=== PATIENT | female | born 1985 | race Caucasian/White ===

== ENCOUNTER 2017-07-03 12:50 | Inpatient (IN) | payer MEDICAID, OTHER ==
[~2017-07-03] VITALS: Ht 165.1 cm; Wt 97.5 kg
[2017-07-03 13:36] LABS: BASOPHILS % (AUTO) 0.5 % (0.0-2.0); EOSINOPHILS % (AUTO) 2.3 % (1.0-6.0); HEMATOCRIT 39.2 % (36-46); HEMOGLOBIN 13.3 g/dL (12.0-16.0); LYMPHOCYTES # (AUTO) 2.8 K/uL (1.0-4.8); LYMPHOCYTES % (AUTO) 29.9 % (22.0-44.0); MEAN CORPUSCULAR HEMOGLOBIN 26.8 pg (26.0-34.0); MEAN CORPUSCULAR HGB CONC 33.9 G/dL (31.0-37.0); MEAN CORPUSCULAR VOLUME 79 fL (80-100); MONOCYTES # (AUTO) 0.8 K/uL (0.1-1.0); MONOCYTES % (AUTO) 8.5 % (2.0-9.0); NEUTROPHILS # (AUTO) 5.5 K/uL (1.8-7.7); NEUTROPHILS % (AUTO) 58.8 % (40.0-70.0); PLATELET COUNT (AUTO) 325 K/uL (150-450); RED BLOOD CELL COUNT(AUTO) 4.95 MIL/uL (4.00-5.20); RED CELL DISTRIBUTION WIDTH 14.5 % (11.5-14.5); WHITE BLOOD COUNT (AUTO) 9.4 K/uL (4.5-11.0)
[2017-07-03 13:44] LABS: ANION GAP 9 mmol/L (8-16); CALCIUM, TOTAL 8.9 mg/dL (8.8-10.5); CARBON DIOXIDE 26 mmol/L (22-29); CHLORIDE 104 mmol/L (98-107); CREATININE 0.74 mg/dL (0.60-1.30); GLOMERULAR FILTR. RATE CALC > 60 mL/min (>60); POTASSIUM 3.5 mmol/L (3.5-5.1); SODIUM SERUM 139 mmol/L (136-145); UREA NITROGEN, BLOOD 11 mg/dL (7-18)
[2017-07-03 13:51] LABS: ALANINE AMINOTRANSFERASE 29 U/L (12-78); ASPARTATE AMINOTRANSFERASE 19 U/L (15-37); BILIRUBIN,TOTAL 0.9 mg/dL (0.1-1.0); TOTAL PROTEIN, SERUM 7.7 g/dL (6.4-8.2)
[2017-07-03] MEDS ORDERED: IBUPROFEN 600 MG TABLET PO ONE (14:15)
[2017-07-03] MEDS ORDERED: LORazepam 2 MG TABLET PO ONE (21:00)
[2017-07-04 08:15] VITALS: BP 146/93
[2017-07-04 08:30] VITALS: BP 137/87
[2017-07-04] MEDS ORDERED: FLUoxetine HCL 20 MG CAPSULE PO SCH (10:30)
[2017-07-04] MEDS: HALOPERIDOL 5 MG TABLET PO SCH (11:29)
[2017-07-04] MEDS ORDERED: ACETAMINOPHEN 325 MG TABLET PO PRN (12:45)
[2017-07-05 05:15] LABS: APPEARANCE,URINE CLOUDY (CLEAR); GLUCOSE, URINE (UA) NEGATIVE (NEGATIVE); KETONES,URINE NEGATIVE (NEGATIVE); LEUKOCYTE ESTERASE ,URINE NEGATIVE (NEGATIVE); OCCULT BLOOD,URINE LARGE (NEGATIVE); PH,URINE 6.5 (5.0-8.0); PROTEIN,URINE POS 1+ (NEGATIVE)
[2017-07-05 05:16] LABS: ADD UA MICROSCOPIC YES
[2017-07-05 06:04] LABS: RBC,URINE 26-50 /HPF (0-2); SQUAMOUS EPITHELIAL CELL,UR Few /LPF (None Seen)
[2017-07-05 07:08] LABS: THYROID STIMULATING HORMONE 0.27 uIU/mL (0.36-3.74)
[2017-07-05 08:42] VITALS: BP 146/96
[2017-07-05] MEDS: HALOPERIDOL 5 MG TABLET PO SCH (09:14)
[2017-07-05] MEDS: PRENATAL VIT#96/FERROUS FUM/FA TABLET PO SCH (09:14)
[2017-07-05] MEDS ORDERED: IBUPROFEN 800 MG TABLET PO PRN (15:15)
[2017-07-05 16:50] VITALS: BP 100/67
[2017-07-05] MEDS ORDERED: PREN1TAB37 PO (17:54)
[2017-07-06 08:30] VITALS: BP 149/95
[2017-07-06] MEDS: PRENATAL VIT#96/FERROUS FUM/FA TABLET PO SCH (09:31)
== END 2017-07-06 13:00 | disposition home or self-care (01) | DRG 566 ==
LOC: EMS 12:52 → AHU 07-04 07:12 → 3EI 07-04 20:02
PROVIDERS: ADMIT Psychiatry & Neurology Psychiatry; ATTEND Psychiatry & Neurology Psychiatry
DX: O99.341 Other mental disorders complicating pregnancy, first trimester (principal); R45.851 Suicidal ideations; O99.321 Drug use complicating pregnancy, first trimester; F32.9 Major depressive disorder, single episode, unspecified; N83.9 Noninflammatory disorder of ovary, fallopian tube and broad ligament, unspecified; O34.81 Maternal care for other abnormalities of pelvic organs, first trimester; F41.9 Anxiety disorder, unspecified; F12.90 Cannabis use, unspecified, uncomplicated; F15.90 Other stimulant use, unspecified, uncomplicated; Z98.891 History of uterine scar from previous surgery; Z3A.00 Weeks of gestation of pregnancy not specified; Z91.19 Patient's noncompliance with other medical treatment and regimen
CPT/HCPCS: 76801; 76817; 83036; 84443; 86901; 99285; G0480

== ENCOUNTER 2025-03-27 00:50 | Emergency (ER) | payer MEDICAID, OTHER ==
[~2025-03-27] VITALS: Ht 167.6 cm; Wt 129.6 kg
[~2025-03-27 00:50] MED LIST: PREN1TAB37 PO
[2025-03-27 00:55] VITALS: TEMP 98
[2025-03-27] MEDS ORDERED: TRAM50TA5 PO (03:53)
[2025-03-27 04:13] VITALS: BP 139/75; PULSE 85; RESP 18; O2SAT 98
== END 2025-03-27 04:13 | disposition home or self-care (01) ==
LOC: EMS 00:50
DX: S42.491A Other displaced fracture of lower end of right humerus, initial encounter for closed fracture (principal); F41.9 Anxiety disorder, unspecified; F32.A Depression, unspecified; Z79.899 Other long term (current) drug therapy; W19.XXXA Unspecified fall, initial encounter; Y93.89 Activity, other specified; Y92.89 Other specified places as the place of occurrence of the external cause; Y99.8 Other external cause status
CPT/HCPCS: 99284; 73080-TC; 73090-TC; Z7502; Z7610